=== PATIENT | male | born 1960 | race Caucasian/White ===

== ENCOUNTER 2022-01-09 08:08 | Day surgery (SDC) | payer BC ==
[2022-01-07 13:08] VITALS: BMI 34.4
[~2022-01-09 08:08] MED LIST: LACTATED RINGERS 1,000 ML IV SCH
[2022-01-09 08:34] VITALS: RESP 18; TEMP 98.2
[2022-01-09] MEDS ORDERED: LACTATED RINGERS 1,000 ML IV ONE (08:34)
[2022-01-09] MEDS ORDERED: PROPOFOL 10 MG/ML 20 ML VIAL IV ONE (09:34)
[2022-01-09] MEDS ORDERED: LIDOCAINE 2% INJ 20 MG/ML (2 ML VIAL) ONE (09:34)
--- NOTE | 2022-01-09 10:00 | P.PCN ---
Date of Procedure: 01/09/22 Procedure(s) Performed: BRIEF HISTORY: Patient is a 61-year-old pleasant white male scheduled for an elective colonoscopy as a part of screening for colorectal neoplasia. PROCEDURE PERFORMED: Colonoscopy with snare polypectomy. PREOPERATIVE DIAGNOSIS: Screening for colon cancer. IV sedation per Anesthesia. PROCEDURE: After informed consent was obtained, the patient, was brought into the endoscopy unit. IV sedation was administered by Anesthesia under continuous monitoring. Digital rectal examination was normal. Initially the Olympus CF-160 flexible video colonoscope was then inserted in the rectum, gradually advanced into the cecum without any difficulty. Careful examination was performed as the scope was gradually being withdrawn. Ileocecal valve and the appendiceal orifice were visualized and appeared normal. Prep was excellent. Mucosa of the cecum, ascending colon appeared normal. In the ascending colon there was a 5 minute a polyp removed by snare polypectomy. In the transverse colon there was a 3 mm and 5 mm polyp removed by snare polypectomy. In the descending colon there was a 4 mm polyp removed by snare polypectomy. Scattered sigmoid diverticulosis seen. In the rectum there was a 7 mm polyp removed by snare polypectomy. Rest of the, transverse colon, descending colon, sigmoid colon, and rectum appeared normal. Retroflexion was performed in the rectum and no lesions were seen. The patient tolerated the procedure well. IMPRESSION: 5 mm ascending colon polyp status post polypectomy 3 mm and 5 mm transverse colon polyp status post polypectomy 4 mm descending colon polyp status post polypectomy 7 mm rectal polyp status post polypectomy Scattered sigmoid diverticulosis Small internal hemorrhoids RECOMMENDATIONS: Findings of this examination were discussed with the patient as well as his family. He was advised to follow with the biopsy results. If the biopsies revealed adenoma he can have a repeat colonoscopy in 3 years.
[2022-01-09 10:36] VITALS: BP 131/82; PULSE 87
== END 2022-01-09 10:46 | disposition home or self-care (01) ==
LOC: ORWHC2ENDO 08:08
PROVIDERS: ATTEND Internal Medicine Gastroenterology
DX: Z12.11 Encounter for screening for malignant neoplasm of colon (principal); D12.2 Benign neoplasm of ascending colon; D12.4 Benign neoplasm of descending colon; D12.8 Benign neoplasm of rectum; K57.30 Diverticulosis of large intestine without perforation or abscess without bleeding; K64.8 Other hemorrhoids
CPT/HCPCS: 88305; 45385; J2704; J2001

== ENCOUNTER → 2023-06-11 | Outpatient (CLI) | payer BC ==
--- NOTE | 2023-06-11 10:46 | XR ---
EXAMINATION TYPE: XR chest 2V DATE OF EXAM: 06/11/2023 COMPARISON: NONE HISTORY: Shortness of breath TECHNIQUE: Frontal and lateral views of the chest are obtained. FINDINGS: Scattered senescent parenchymal changes noted. Hyperinflation compatible with COPD. No evidence for infiltrate. No evidence for atelectasis. Heart size is stable. Mediastinal structures are stable and grossly unremarkable. No evidence for hilar prominence. Degenerative changes dorsal spine. IMPRESSION: 1. No evidence for acute pulmonary disease.
[2023-06-11 11:05] LABS: INR 0.9 (<1.2); Prothrombin Time 10.3 sec (10.0-12.5)
[2023-06-11 11:17] LABS: Partial Thromboplastin Time 21.8 sec (22.0-30.0)
[2023-06-11 16:23] LABS: ALT 22 U/L (10-49); AST 18 U/L (14-35); Albumin 4.4 g/dL (3.8-4.9); Alkaline Phosphatase 77 U/L (41-126); BUN/Creat Ratio 30.38 Ratio (12.00-20.00); Blood Urea Nitrogen 24.3 mg/dL (9.0-27.0); Calcium 9.8 mg/dL (8.7-10.3); Carbon Dioxide 23.5 mmol/L (21.6-31.8); Chloride 105 mmol/L (96-109); Globulin 2.2 g/dL (1.6-3.3); Glucose 99 mg/dL (70-110); Potassium 4.6 mmol/L (3.5-5.5); Sodium 139 mmol/L (135-145); Total Bilirubin 0.3 mg/dL (0.3-1.2); Total Protein 6.6 g/dL (6.2-8.2)
[2023-06-11 16:49] LABS: Appearance,Urine Clear (Clear); Bilirubin,Urine Negative (Negative); Blood,Urine Negative (Negative); Color,Urine Yellow (Yellow); Ketones,Urine Negative (Negative); Nitrite,Urine Negative (Negative); PH, Urine 6.5; Specific Gravity,Urine 1.007 (1.001-1.030); Urobilinogen,Urine 0.2 E.U./DL
[2023-06-11 16:51] LABS: Basophils # (A) 0.04 X 10*3/uL (0.00-0.10); Basophils % (A) 0.7 %; Eosinophils # (A) 0.11 X 10*3/uL (0.04-0.35); Eosinophils % (A) 1.8 %; HCT 51.3 % (39.6-50.0); HGB 16.8 g/dL (13.0-17.0); Lymphocytes # (A) 1.49 X 10*3/uL (0.90-5.00); Lymphocytes % (A) 24.9 %; MCH 31.5 pg (27.0-32.0); MCHC 32.7 g/dL (32.0-37.0); MCV 96.1 FL (80.0-97.0); Mean Platelet Volume 10.8 FL (9.5-12.2); Monocytes # (A) 0.57 X 10*3/uL (0.20-1.00); Monocytes % (A) 9.5 %; NRBC Per 100 WBC 0 X 10*3/uL (0.00-0.01); Neutrophils # (A) 3.75 X 10*3/uL (1.80-7.70); Neutrophils % (A) 62.6 %; Platelet Count 263 X 10*3/uL (140-440); RBC 5.34 X 10*6/uL (4.40-5.60); RBC Morphology Normal (Normal); RDW 12.2 % (11.5-14.5); WBC 5.99 X 10*3/uL (4.50-10.00)
== END | disposition home or self-care (01) ==
LOC: LABWHC1 09:27
PROVIDERS: ATTEND Orthopaedic Surgery
DX: Z01.812 Encounter for preprocedural laboratory examination (principal); M16.11 Unilateral primary osteoarthritis, right hip; R06.02 Shortness of breath
CPT/HCPCS: 36415; 71046; 80053; 81003; 85025; 85610; 85730; 86850; 86900; 86901; 87070

== ENCOUNTER 2023-06-22 05:32 | Day surgery (SDC) | payer BC, OTHER ==
[~2023-06-22 05:32] MED LIST changes: +ACETAMINOPHEN TAB 500 MG TAB PO PRN; +GABAPENTIN 300 MG CAP PO PRN; -LACTATED RINGERS 1,000 ML IV SCH; +MELOXICAM 7.5 MG TAB PO PRN; +TRANEXAMIC 1,000 MG/100ML-NACL 1,000 MG in SALINE 1 100ML.BAG IVPB PRN
[2023-06-22] MEDS ORDERED: ONDANSETRON 4 MG/2 ML VIAL IVP ONE (05:50)
[2023-06-22] MEDS ORDERED: DEXAMETHASONE SOD PHOSPHATE 4 MG/ML 1 ML VIAL IV ONE (05:50)
[2023-06-22] MEDS ORDERED: LACTATED RINGERS 1,000 ML IV SCH ×2 (05:50)
[2023-06-22] MEDS ORDERED: MIDAZOLAM 2 MG/2 ML VIAL IVP ONE (06:38)
[2023-06-22] MEDS ORDERED: GLYCOPYRROLATE 0.2 MG/ML 2 ML VIAL ONE (06:52)
[2023-06-22] MEDS ORDERED: TRANEXAMIC 1,000 MG/100ML-NACL PREMIX BAG ONE (06:52)
[2023-06-22] MEDS ORDERED: fentaNYL (PF) 50 MCG/ML 2 ML AMP ONE (06:52)
[2023-06-22] MEDS ORDERED: LIDOCAINE 1% INJ 10MG/ML (20 ML MDV) ONE (06:52)
[2023-06-22] MEDS ORDERED: ROPIVACAINE 5 MG/ML 30 ML VIAL ONE (06:52)
[2023-06-22] MEDS ORDERED: PROPOFOL 10 MG/ML 20 ML VIAL IV ONE (06:52)
[2023-06-22] MEDS ORDERED: NEOSTIGMINE 1 MG/ML 10 ML VIAL ONE (06:52)
[2023-06-22] MEDS ORDERED: KETAMINE HCL IN 0.9 % NACL 50 MG/5 ML SYRINGE ONE (06:52)
[2023-06-22] MEDS ORDERED: MIDAZOLAM 2 MG/2 ML VIAL ONE (06:52)
[2023-06-22] MEDS ORDERED: SUCCINYLCHOLINE CHLORIDE 200 MG/10 ML VIAL IV ONE (06:52)
[2023-06-22] MEDS ORDERED: HYDROmorphone (PF) 1 MG/ML ONE (06:52)
[2023-06-22] MEDS ORDERED: ROCURONIUM 10 MG/ML (5 ML VIAL) IV ONE (06:52)
[2023-06-22] MEDS ORDERED: HYDROmorphone 0.5 MG/0.5 ML SYRINGE IVP PRN ×3 (07:00→08:33)
[2023-06-22] MEDS ORDERED: ROPIVACAINE 5 MG/ML 30 ML VIAL MISCELLANE ONE ×2 (07:24→07:59)
[2023-06-22] MEDS ORDERED: ceFAZolin 1,000 MG in SODIUM CHLORIDE 0.9% 1,000 ML IRRIGATION ONE (07:26)
--- NOTE | 2023-06-22 07:51 | P.ANPRN ---
Procedure Note - Anesthesia - Nerve Block Performed Right Antoine Single Time Out Performed: Yes ([id number]) Date of Procedure: 06/22/23 Procedure Start Time: 06:38 Procedure Stop Time: 06:42 Location of Patient: PreOp Indication: Acute Post-Operative Pain, Requested by Surgeon Specifically requested for management of pain by DrEcho: Iván Diane Sedation Type: Sedate with meaningful contact maintained Preparation: Sterile Prep Position: Supine Catheter: None Needle Types: Pajunk Needle Gauge: 21 Ultrasound used to visualize needle placement: Yes Ultrasound used to observe medication spread: Yes Injectate: 0.5% Ropivacaine (see comment for volume) (30cc) Blood Aspirated: No Pain Paresthesia on Injection Noted: No Resistance on Injection: Normal Image Stored and Saved: Yes Events: Uneventful and Well Tolerated
[2023-06-22] MEDS ORDERED: LACTATED RINGERS 1,000 ML IV ONE ×2 (08:02)
--- NOTE | 2023-06-22 08:05 | P.OP ---
Date of Procedure: 06/22/23 Preoperative Diagnosis: Severe osteoarthritis right hip Postoperative Diagnosis: Severe osteoarthritis right hip Procedure(s) Performed: Right total hip arthroplasty with a direct anterior approach Implants: Hubbard [employer] Nephew Polarstem standard size 6 with a collar Hubbard [employer] Nephew R3, 3 hole hemispherical acetabular shell, 54 mm Hubbard [employer] Nephew Reflection 6.5 mm cancellus screw, 20 mm, 25 mm Hubbard [employer] Nephew R3, XLPE 20 acetabular liner Hubbard [employer] Nephew Oxinium femoral head 36 mm, +0 All components were press-fit. The articulation is Oxinium on polyethylene. Anesthesia: GETA Surgeon: Iván Diane Candy Forming Machine Operator #1: Amber Orozco Estimated Blood Loss (ml): 300 Pathology: none sent Condition: stable Disposition: PACU Indications for Procedure: After failure of conservative treatment we discussed the surgical and non surgical treatment options at length. Patient wishes to proceed with a total hip arthroplasty with a direct anterior approach. Complications specific to this procedure were discussed at length, including but not limited to infection, leg length discrepancy, dislocation, nerve injury, and fracture. Covid-19 was also discussed at length with the patient, and they are aware of the current policies and procedures. The patient was given the option of delaying surgery, but they elect to proceed knowing these risks. Patient is aware of all these complications and informed consent was obtained Operative Findings: The operative findings are consistent with severe osteoarthritis of the right hip Description of Procedure: The patient was seen and evaluated in the preoperative area and the consent was reviewed. The operative site was marked with a skin marker. The patient verified the procedure and operative site. A RICK block was placed by anesthesia in the preoperative area. The patient was then brought to the operating room and given preoperative antibiotics intravenously. 1 g of Tranexamic acid was also given intravenously. A general anesthetic was administered by the anesthesia department. The patient was then placed on the Franklin table with the bony prominences well-padded. The hip area was then prepped with a ChloraPrep solution and draped in the usual sterile fashion. A universal timeout was then performed, which confirmed the patient's name, surgical site, ALLERGIES, and procedure being performed on the consent. Next the incision site was located at 1 cm distal and 4 cm lateral to the anterior superior iliac spine. The skin and subcutaneous tissues were sharply incised. Incision was carefully dissected down to the fascia overlying the tensor fascia opal muscle. This fascia was then incised in line with the muscle fibers. Care was taken to stay laterally in order to avoid injuring the lateral femoral cutaneous nerve. Next, using blunt finger dissection, the tensor fascia opal muscle was dissected off its investing fascia. The muscle was then carefully retracted laterally with a cobra retractor over the lateral neck of the femur. Next, the circumflex vessels were identified and cauterized using the Aquamantis device. The anterior hip capsule was then exposed. The capsule was then opened and an inverted T fashion. The retractors were then placed intracapsularly. The retractors were maintained intracapsular throughout the procedure. The proximal femur was then visualized. Fluoroscopic x-rays were then taken in order to evaluate the preoperative leg lengths. A small amount of traction was placed on the leg. The femoral neck was then osteotomized at the appropriate level above the lesser trochanter. A small wedge of bone was then removed from the remaining femoral head. Next, using a corkscrew the femoral head was removed from the acetabulum. On gross visual inspection, the femoral head had complete loss of articular cartilage and multiple periarticular osteophytes. The femoral head was then measured. Attention was then turned to the acetabulum. The acetabulum was exposed and any remaining labrum was excised. Sequential reaming of the acetabulum was performed using fluoroscopic guidance until there was a good bed of bleeding cancellus bone. When the appropriate size was reached, a trial was then placed. The position and fit of the trial was checked with fluoroscopy. The trial was then removed. Then, using fluoroscopic guidance, the final implant was impacted at 20 of anteversion and 40 of abduction, and fully seated in the acetabulum. 2 screws were then placed in the acetabulum. Again fluoroscopy was used to check position of the screws. Next, the liner was then impacted, with a 20 elevated liner located in the anterior superior quadrant. Component locking was confirmed. Attention was then directed to the femur. With the aid of the Franklin table, the femur was externally rotated to approximately 130, extended, and adducted under the opposite leg. A side hook was then placed under the proximal femur, and the side hook elevator was used to elevate the proximal femur while releasing the capsule. Retractors were then placed. A capsular release was performed, as well as a release of the conjoined tendon, which afforded excellent visualization of the proximal femur. Next, a box osteotome was used to lateralize the proximal femur. A warehouse freight handler was then used to locate the femoral canal. Sequential broaching was then performed with appropriate size which afforded excellent fixation in the proximal femur. A trial was then placed with appropriate head and neck, and the hip was gently reduced with the aid of the Franklin table. Fluoroscopy was then used to check position of the components, as well as to evaluate the leg lengths and offset. The leg lengths and offset were measured as closely as possible to ensure stability of the hip. The hip was then gently dislocated and the trials were then removed. Final implants were then impacted and the hip was again reduced. Final fluoroscopic x-rays confirmed that the components were in anatomic position. The leg lengths and offset were measured and were found to coincide with the trial measurements. The hip was also taken through range of motion, and found to be stable. The hip was then copiously irrigated with antibiotic solution with pulsatile lavage. The hip was then irrigated with Irrisept solution. The soft tissues were then injected with a ropivacaine solution. A second dose of 1 g of Tranexamic acid was also given intravenously. The fascia was then closed with 2-0 strata fix suture. The subcutaneous tissue was closed with 3-0 Vicryl. The subcuticular tissue was closed with 3-0 strata fix suture. The skin was then closed with Exofin skin glue. After the glue and dried, and Optifoam silver impregnated dressing was applied. The patient was then transferred to the recovery room in stable condition. The clothing sales assistant JORGE Barbour was required due to the complexity of surgery, and the need for skilled surgical services manager for positioning, draping, exposure, retraction, and closure of the wound.
--- NOTE | 2023-06-22 08:31 | XR ---
EXAMINATION TYPE: XR Hip Limited RT DATE OF EXAM: 06/22/2023 COMPARISON: NONE HISTORY: Postop TECHNIQUE: 5 view submitted. FINDINGS: There is postsurgical change compatible hip replacement surgery. IMPRESSION: 1. Postoperative change.
[2023-06-22] MEDS ORDERED: HYDROmorphone 1 MG/ML 1 ML SYRINGE IVP PRN (08:33)
[2023-06-22] MEDS ORDERED: ONDANSETRON 4 MG/2 ML VIAL IVP PRN (08:33)
[2023-06-22] MEDS ORDERED: NALOXONE 0.4 MG/ML 1 ML VIAL IV PRN (08:33)
[2023-06-22] MEDS ORDERED: HYDROcodone/APAP 7.5-325MG 1 EACH TAB PO PRN ×2 (08:35)
--- NOTE | 2023-06-22 08:35 | FL ---
EXAMINATION TYPE: FL guidance operating room DATE OF EXAM: 06/22/2023 HISTORY: Fluoroscopy time Total dose area product (DAP) in uGy*m?, mGy*cm? (or similar): 3.1176 IMPRESSION: 1. Fluoroscopy time.
[2023-06-22] MEDS ORDERED: SODIUM CHLORIDE 0.9% 1,000 ML IV SCH (08:45)
[2023-06-22 09:02] VITALS: TEMP 98
--- NOTE | 2023-06-22 09:07 | XR ---
EXAMINATION TYPE: XR Hip Limited RT DATE OF EXAM: 06/22/2023 COMPARISON: NONE HISTORY: Postop TECHNIQUE: One view submitted. FINDINGS: There is postsurgical change compatible hip replacement surgery. IMPRESSION: 1. Postoperative change.
[2023-06-22] MEDS ORDERED: droPERidol 5 MG/2 ML VIAL IVP ONE (10:13)
[2023-06-22] MEDS ORDERED: ceFAZolin 10 GM VIAL IVPB ONE (11:00)
[2023-06-22] MEDS ORDERED: IV FLUID CONTINUATION 1,000 ML IV ONE (11:04)
[2023-06-22] MEDS ORDERED: HYDROcodone/APAP 7.5-325MG 1 EACH TAB PO ONE (11:51)
[2023-06-22 11:52] VITALS: RESP 16
[2023-06-22 13:28] VITALS: BP 159/80; PULSE 93
== END 2023-06-22 14:00 | disposition home health service (06) ==
LOC: OR 05:32
PROVIDERS: ATTEND Orthopaedic Surgery
DX: M16.11 Unilateral primary osteoarthritis, right hip (principal); G89.18 Other acute postprocedural pain; K30 Functional dyspepsia; F17.210 Nicotine dependence, cigarettes, uncomplicated; F10.90 Alcohol use, unspecified, uncomplicated; K21.9 Gastro-esophageal reflux disease without esophagitis; Z83.3 Family history of diabetes mellitus; Z79.899 Other long term (current) drug therapy
CPT/HCPCS: 97162; 64447; 73501; 27130; C1776; J2250; J0330; J1100; J2710; J0690 ×2; J2405; J2001; J3010; J1170 ×2; J2795; J2704; J1790

== ENCOUNTER → 2023-09-03 | Outpatient (CLI) | payer OTHER ==
[2023-09-03 10:32] LABS: Partial Thromboplastin Time 26.5 sec (22.0-30.0); Prothrombin Time 10.7 sec (10.0-12.5)
[2023-09-03 16:01] LABS: ALT 27 U/L (10-49); AST 22 U/L (14-35); Albumin 4.4 g/dL (3.8-4.9); Alkaline Phosphatase 94 U/L (41-126); BUN/Creat Ratio 22.25 Ratio (12.00-20.00); Blood Urea Nitrogen 17.8 mg/dL (9.0-27.0); Calcium 9.6 mg/dL (8.7-10.3); Carbon Dioxide 25.6 mmol/L (21.6-31.8); Chloride 106 mmol/L (96-109); Globulin 2.2 g/dL (1.6-3.3); Glucose 105 mg/dL (70-110); Potassium 4.8 mmol/L (3.5-5.5); Sodium 141 mmol/L (135-145); Total Bilirubin 0.3 mg/dL (0.3-1.2); Total Protein 6.6 g/dL (6.2-8.2)
== END | disposition home or self-care (01) ==
LOC: LABPAT 09:16
PROVIDERS: ATTEND Orthopaedic Surgery
DX: Z01.812 Encounter for preprocedural laboratory examination (principal); M16.12 Unilateral primary osteoarthritis, left hip; Z22.322 Carrier or suspected carrier of Methicillin resistant Staphylococcus aureus
CPT/HCPCS: 80053; 83036; 85610; 85730; 86850; 86900; 86901; 87070

== ENCOUNTER → 2023-09-10 | Outpatient (CLI) | payer OTHER ==
[2023-09-10 09:52] LABS: Basophils % (A) 1 %; Eosinophils # (A) 0.1 k/uL (0-0.7); Eosinophils % (A) 1 %; HCT 53.5 % (39.0-53.0); Lymphocytes # (A) 2.1 k/uL (1.0-4.8); Lymphocytes % (A) 29 %; MCH 32.5 pg (25.0-35.0); MCHC 33.6 g/dL (31.0-37.0); MCV 96.6 fL (80.0-100.0); Mean Platelet Volume 7.3; Monocytes # (A) 0.5 k/uL (0-1.0); Monocytes % (A) 7 %; Neutrophils # (A) 4.3 k/uL (1.3-7.7); Neutrophils % (A) 60 %; Platelet Count 273 k/uL (150-450); RBC 5.54 m/uL (4.30-5.90); RDW 12.7 % (11.5-15.5); WBC 7.1 k/uL (3.8-10.6)
[2023-09-10 09:55] LABS: Appearance,Urine Clear (Clear); Bilirubin,Urine Negative (Negative); Blood,Urine Small (Negative); Color,Urine Yellow; Glucose,Urine (UA) Negative (Negative); Ketones,Urine Negative (Negative); Leukocyte Esterase,Urine Negative (Negative); Mucus,Urine Moderate /hpf; Nitrite,Urine Negative (Negative); PH, Urine 5.5 (5.0-8.0); Protein,Urine Negative (Negative); RBC,Urine 1 /hpf (0-5); Specific Gravity,Urine 1.021 (1.001-1.035); Urobilinogen,Urine <2.0 mg/dL (<2.0); WBC,Urine <1 /hpf (0-5)
[2023-09-10 15:44] LABS: Chol/HDL Ratio 4.71 Ratio; LDL Cholesterol,Calculated 155.2 mg/dL (0.0-131.0); Prostate Specific Antigen 1.19 ng/mL (0.000-4.500)
== END | disposition home or self-care (01) ==
LOC: LABPAT 09:12
PROVIDERS: ATTEND Orthopaedic Surgery
DX: Z00.01 Encounter for general adult medical examination with abnormal findings (principal); M16.12 Unilateral primary osteoarthritis, left hip
CPT/HCPCS: 36415; 80061; 81001; 84153; 85025

== ENCOUNTER 2023-09-14 09:38 | Day surgery (SDC) | payer OTHER ==
[~2023-09-14 09:38] MED LIST changes: -ACETAMINOPHEN TAB 500 MG TAB PO PRN; -GABAPENTIN 300 MG CAP PO PRN; -MELOXICAM 7.5 MG TAB PO PRN
[2023-09-14] MEDS: LACTATED RINGERS 1,000 ML IV SCH (10:56)
[2023-09-14] MEDS: ACETAMINOPHEN TAB 500 MG TAB PO PRN (11:03)
[2023-09-14] MEDS: DEXAMETHASONE SOD PHOSPHATE 4 MG/ML 1 ML VIAL IV ONE (11:03)
[2023-09-14] MEDS: ONDANSETRON 4 MG/2 ML VIAL IVP ONE (11:03)
[2023-09-14] MEDS: GABAPENTIN 300 MG CAP PO PRN (11:03)
[2023-09-14] MEDS: MELOXICAM 7.5 MG TAB PO PRN (11:03)
[2023-09-14] MEDS: MIDAZOLAM 2 MG/2 ML VIAL IVP ONE (11:12)
[2023-09-14] MEDS: fentaNYL (PF) 50 MCG/1 ML VIAL IVP ONE (11:12)
[2023-09-14] MEDS ORDERED: TRANEXAMIC 1,000 MG/100ML-NACL PREMIX BAG ONE (12:10)
[2023-09-14] MEDS ORDERED: LIDOCAINE 1% INJ 10MG/ML (20 ML MDV) ONE (12:10)
[2023-09-14] MEDS ORDERED: fentaNYL (PF) 50 MCG/ML 2 ML AMP ONE (12:10)
[2023-09-14] MEDS ORDERED: SUCCINYLCHOLINE CHLORIDE 200 MG/10 ML VIAL IV ONE (12:10)
[2023-09-14] MEDS ORDERED: HYDROmorphone (PF) 1 MG/ML ONE (12:10)
[2023-09-14] MEDS ORDERED: ROCURONIUM 10 MG/ML (5 ML VIAL) IV ONE (12:10)
[2023-09-14] MEDS ORDERED: LABETALOL 5 MG/ML VIAL MDV ONE (12:10)
[2023-09-14] MEDS ORDERED: MIDAZOLAM 2 MG/2 ML VIAL ONE (12:10)
[2023-09-14] MEDS ORDERED: PROPOFOL 10 MG/ML 20 ML VIAL IV ONE (12:10)
[2023-09-14] MEDS ORDERED: GLYCOPYRROLATE 0.2 MG/ML 2 ML VIAL ONE (12:10)
[2023-09-14] MEDS ORDERED: ROPIVACAINE 5 MG/ML 30 ML VIAL ONE (12:10)
[2023-09-14] MEDS ORDERED: NEOSTIGMINE 1 MG/ML 10 ML VIAL ONE (12:10)
[2023-09-14] MEDS ORDERED: NALOXONE 0.4 MG/ML 1 ML VIAL IV PRN (12:12)
[2023-09-14] MEDS ORDERED: HYDROmorphone 1 MG/ML 1 ML SYRINGE IVP PRN (12:12)
[2023-09-14] MEDS ORDERED: HYDROmorphone 0.5 MG/0.5 ML SYRINGE IVP PRN ×2 (12:12)
[2023-09-14] MEDS ORDERED: SODIUM CHLORIDE 0.9% 1,000 ML IV SCH (12:15)
[2023-09-14] MEDS: ceFAZolin 1,000 MG in SODIUM CHLORIDE 0.9% 1,000 ML IRRIGATION ONE (12:15)
[2023-09-14] MEDS ORDERED: HYDROcodone/APAP 7.5-325MG 1 EACH TAB PO PRN (12:15)
[2023-09-14] MEDS: ROPIVACAINE 5 MG/ML 30 ML VIAL MISCELLANE ONE ×2 (12:55→13:32)
--- NOTE | 2023-09-14 13:34 | P.ANPRN ---
Procedure Note - Anesthesia - Nerve Block Performed Left Antoine Single Time Out Performed: Yes (1111) Date of Procedure: 09/14/23 Procedure Start Time: 11:12 Procedure Stop Time: 11:16 Location of Patient: PreOp Indication: Acute Post-Operative Pain, Requested by Surgeon Specifically requested for management of pain by DrEcho: Iván Diane Sedation Type: Sedate with meaningful contact maintained Preparation: Sterile Prep Position: Supine Catheter: None Needle Types: Pajunk Needle Gauge: 21 Ultrasound used to visualize needle placement: Yes Ultrasound used to observe medication spread: Yes Injectate: 0.5% Ropivacaine (see comment for volume) (30cc) Blood Aspirated: No Pain Paresthesia on Injection Noted: No Resistance on Injection: Normal Image Stored and Saved: Yes Events: Uneventful and Well Tolerated
--- NOTE | 2023-09-14 13:38 | P.OP ---
Date of Procedure: 09/14/23 Preoperative Diagnosis: Severe osteoarthritis left hip Postoperative Diagnosis: Severe osteoarthritis left hip Procedure(s) Performed: Total hip arthroplasty with a direct anterior approach Implants: Hubbard [employer] Nephew Polarstem standard size 5 with a collar [employer] Nephew R3, 3 hole hemispherical acetabular shell, 54 mm Hubbard [employer] Nephew Reflection 6.5 mm cancellus screw, 20 mm 2 Hubbard [employer] Nephew R3, XLPE 20 acetabular liner [employer] Nephew Oxinium femoral head 36 mm, +0 All components were press-fit. The articulation is Oxinium on polyethylene. Anesthesia: GETA Surgeon: Iván Diane Residential Construction Instructor #1: Amber Orozco Estimated Blood Loss (ml): 400 Pathology: none sent Condition: stable Disposition: PACU Indications for Procedure: After failure of conservative treatment we discussed the surgical and nonsurgical treatment options at length. Patient wishes to proceed with a total hip arthroplasty with a direct anterior approach. Complications specific to this procedure were discussed at length, including but not limited to infection, leg length discrepancy, dislocation, nerve injury, and fracture. Covid-19 was also discussed at length with the patient, and they are aware of the current policies and procedures. The patient was given the option of delaying surgery, but they elect to proceed knowing these risks. Patient is aware of all these complications and informed consent was obtained Operative Findings: Operative findings are consistent with severe osteoarthritis of the left hip Description of Procedure: The patient was seen and evaluated in the preoperative area and the consent was reviewed. The operative site was marked with a skin marker. The patient verified the procedure and operative site. A RICK block was placed by anesthes ia in the preoperative area. The patient was then brought to the operating room and given preoperative antibiotics intravenously. 1 g of Tranexamic acid was also given intravenously. A general anesthetic was administered by the anesthesia department. The patient was then placed on the [place] table with the bony prominences well-padded. The hip area was then prepped with a ChloraPrep solution and draped in the usual sterile fashion. A universal timeout was then performed, which confirmed the patient's name, surgical site, ALLERGIES, and procedure being performed on the consent. Next the incision site was located at 1 cm distal and 4 cm lateral to the anterior superior iliac spine. The skin and subcutaneous tissues were sharply incised. Incision was carefully dissected down to the fascia overlying the tensor fascia opal muscle. This fascia was then incised in line with the muscle fibers. Care was taken to stay laterally in order to avoid injuring the lateral femoral cutaneous nerve. Next, using blunt finger dissection, the tensor fascia opal muscle was dissected off its investing fascia. The muscle was then carefully retracted laterally with a cobra retractor over the lateral neck of the femur. Next, the circumflex vessels were identified and cauterized using the Aquamantis device. The anterior hip capsule was then exposed. The capsule was then opened and an inverted T fashion. The retractors were then placed intracapsularly. The retractors were maintained intracapsular throughout the procedure. The proximal femur was then visualized. Fluoroscopic x-rays were then taken in order to evaluate the preoperative leg lengths. A small amount of traction was placed on the leg. The femoral neck was then osteotomized at the appropriate level above the lesser trochanter. A small wedge of bone was then removed from the remaining femoral head. Next, using a corkscrew the femoral head was removed from the acetabulum. On gross visual inspection, the femoral head had complete loss of articular cartilage and multiple periarticular osteophytes. The femoral head was then measured. Attention was then turned to the acetabulum. The acetabulum was exposed and any remaining labrum was excised. Sequential reaming of the acetabulum was performed using fluoroscopic guidance until there was a good bed of bleeding cancellus bone. When the appropriate size was r eached, a trial was then placed. The position and fit of the trial was checked with fluoroscopy. The trial was then removed. Then, using fluoroscopic guidance, the final implant was impacted at 20 of anteversion and 40 of abduction, and fully seated in the acetabulum. 2 screws were then placed in the acetabulum. Again fluoroscopy was used to check position of the screws. Next, the liner was then impacted, with a 20 elevated liner located in the anterior superior quadrant. Component locking was confirmed. Attention was then directed to the femur. With the aid of the [place] table, the femur was externally rotated to approximately 130, extended, and adducted under the opposite leg. A side hook was then placed under the proximal femur, and the side hook elevator was used to elevate the proximal femur while releasing the capsule. Retractors were then placed. A capsular release was performed, as well as a release of the conjoined tendon, which afforded excellent visualization of the proximal femur. Next, a box osteotome was used to lateralize the proximal femur. A hand upper and bottom lacer was then used to locate the femoral canal. Sequential broaching was then performed with appropriate size which afforded excellent fixation in the proximal femur. A trial was then placed with appropriate head and neck, and the hip was gently reduced with the aid of the [place] table. Fluoroscopy was then used to check position of the components, as well as to evaluate the leg lengths and offset. The leg lengths and offset were measured as closely as possible to ensure stability of the hip. The hip was then gently dislocated and the trials were then removed. Final implants were then impacted and the hip was again reduced. Final fluoroscopic x-rays confirmed that the components were in anatomic position. The leg lengths and offset were measured and were found to coincide with the trial measurements. The hip was also taken through range of motion, and found to be stable. The hip was then copiously irrigated with antibiotic solution with pulsatile lavage. The hip was then irrigated with Irrisept solution. The soft tissues were then injected with a ropivacaine solution. A second dose of 1 g of Tranexamic acid was also given intravenously. The fascia was then closed with 2-0 strata fix suture. The subcutaneous tissue was closed with 3-0 Vicryl. The subcuticular tissue was closed with 3-0 strata fix suture. The skin was then closed with Exofin skin glue. After the glue and dried, and Optifoam silver impregnated dressing was applied. The patient was then transferred to the recovery room in stable condition. The respiratory assistant JORGE Barbour was required due to the complexity of surgery, and the need for skilled surgical coordinator for positioning, draping, exposure, retraction, and closure of the wound.
[2023-09-14] MEDS: LACTATED RINGERS 1,000 ML IV ONE (13:55)
[2023-09-14 14:34] VITALS: TEMP 98.1
[2023-09-14] MEDS: HYDROmorphone 0.5 MG/0.5 ML SYRINGE IVP PRN (14:35)
[2023-09-14] MEDS: ONDANSETRON 4 MG/2 ML VIAL IVP PRN (14:43)
--- NOTE | 2023-09-14 14:57 | XR ---
EXAMINATION TYPE: XR Hip Limited LT DATE OF EXAM: 09/14/2023 2:27 PM CLINICAL INDICATION:Male, 62 years old with history of Status post hip surgery, assess surgical align ment; COMPARISON: None. TECHNIQUE: XR Hip Limited LT; hip was examined in the frontal and lateral projections and a AP pelvis . FINDINGS: Post arthroplasty changes, hardware is intact, alignment is appropriate. No evidence of fra cture. Postoperative changes of the soft tissues with subcutaneous gas. No evidence of any acute osse ous pathology or joint dislocation. IMPRESSION: Hip arthroplasty with hardware intact and in appropriate alignment. No acute fracture.
[2023-09-14] MEDS: HYDROcodone/APAP 7.5-325MG 1 EACH TAB PO PRN (16:10)
--- NOTE | 2023-09-14 16:38 | FL ---
EXAMINATION TYPE: FL guidance operating room, XR Hip Limited LT Intraoperative/procedural fluoroscopi c services were provided. Total fluoroscopy time is 33 seconds with a total of 3 submitted images to PACS. Please see the operative/procedural note for further details. DAP: 3.7752 Gycm2
[2023-09-14 17:39] VITALS: BP 134/83; PULSE 89; RESP 18
== END 2023-09-14 17:38 | disposition home health service (06) ==
LOC: OR 09:38 → EDSTATUS 11:45 → OR 17:38
PROVIDERS: ATTEND Orthopaedic Surgery
DX: M16.12 Unilateral primary osteoarthritis, left hip (principal); K21.9 Gastro-esophageal reflux disease without esophagitis; F17.210 Nicotine dependence, cigarettes, uncomplicated; Z79.899 Other long term (current) drug therapy
CPT/HCPCS: 27130; 97162; 64447; 73501; C1776; J2250; J0330; J1100; J2710; J0690 ×2; J2405; J2001; J3010 ×2; J1170 ×2; J2795; J2704; J1920

== ENCOUNTER → 2024-11-22 | Outpatient (CLI) | payer OTHER ==
[2024-11-22 15:27] LABS: Basophils # (A) 0.03 X 10*3/uL (0.00-0.10); Basophils % (A) 0.5 %; Eosinophils # (A) 0.11 X 10*3/uL (0.04-0.35); Eosinophils % (A) 1.8 %; HCT 50.8 % (39.6-50.0); HGB 16.7 g/dL (13.0-17.0); Lymphocytes # (A) 1.43 X 10*3/uL (0.90-5.00); MCH 31.4 pg (27.0-32.0); MCHC 32.9 g/dL (32.0-37.0); MCV 95.5 FL (80.0-97.0); Mean Platelet Volume 9.9 FL (9.5-12.2); Monocytes # (A) 0.55 X 10*3/uL (0.20-1.00); Monocytes % (A) 9.2 %; NRBC Per 100 WBC 0 X 10*3/uL (0.00-0.01); Platelet Count 251 X 10*3/uL (140-440); RBC 5.32 X 10*6/uL (4.40-5.60); RDW 13.1 % (11.5-14.5); WBC 5.95 X 10*3/uL (4.50-10.00)
[2024-11-22 15:48] LABS: ALT 19 U/L (10-49); AST 20 U/L (14-35); Albumin 4.1 g/dL (3.8-4.9); Albumin/Globulin Ratio 1.78 Ratio (1.60-3.17); Alkaline Phosphatase 74 U/L (41-126); BUN/Creat Ratio 20.22 Ratio (12.00-20.00); Blood Urea Nitrogen 18.2 mg/dL (9.0-27.0); Calcium 9.2 mg/dL (8.7-10.3); Carbon Dioxide 22.9 mmol/L (21.6-31.8); Chloride 104 mmol/L (96-109); Chol/HDL Ratio 3.75 Ratio; Globulin 2.3 g/dL (1.6-3.3); Glucose 116 mg/dL (70-110); LDL Cholesterol,Calculated 128.9 mg/dL (0.0-131.0); Potassium 4.5 mmol/L (3.5-5.5); Sodium 141 mmol/L (135-145); Total Bilirubin 0.3 mg/dL (0.3-1.2); Total Protein 6.4 g/dL (6.2-8.2)
== END | disposition home or self-care (01) ==
LOC: LABWHC1 09:03
PROVIDERS: ATTEND Family Medicine
DX: Z00.01 Encounter for general adult medical examination with abnormal findings (principal); Z12.5 Encounter for screening for malignant neoplasm of prostate; E55.9 Vitamin D deficiency, unspecified
CPT/HCPCS: 36415; 80053; 80061; 82306; 84153; 85025